=== PATIENT | male | born 1980 | race Caucasian/White ===

== ENCOUNTER → 2020-11-01 10:20 | Outpatient (BNVA) | payer MEDICARE, SELFPAY | PROVIDERS: Family Provider Nurse Practitioner Family; PCP Family Medicine; Visit Provider Internal Medicine | DX: M25.50 Pain in unspecified joint (principal); Z79.899 Other long term (current) drug therapy; Z11.59 Encounter for screening for other viral diseases; M45.9 Ankylosing spondylitis of unspecified sites in spine; G62.9 Polyneuropathy, unspecified; M25.552 Pain in left hip; R53.83 Other fatigue; L40.9 Psoriasis, unspecified; D86.9 Sarcoidosis, unspecified; Z51.81 Encounter for therapeutic drug level monitoring; M54.9 Dorsalgia, unspecified | CPT/HCPCS: 36415; 72202; 73120; 80053; 82306; 82310; 82533; 82550; 82607; 82728; 82784; 83516; 83540; 83735; 83970; 84100; 84403; 84443; 85025; 85651; 86140; 86160; 86162; 86235; 86255; 86376; 86431; 86617; 86704; 86803; 86812; 87340; 99204 ==

== ENCOUNTER 2020-11-01 12:01 | Outpatient (CLI) | payer MEDICARE, SELFPAY ==
--- NOTE | 2020-11-01 12:10 | XR_ITS ---
WS: [id number] Exam: XR hand LT 2V [id number] Date/Time of Exam: 11/01/2020 1:08 PM Reason For Exam: M25.50 - Pain in unspecified joint Findings: No fractures, soft tissue swelling, or unusual calcifications are noted. The hand shows normal bony alignment. There is no irregularity of the bony architecture. XR/XR hand LT 2V [id number] IMPRESSION: Normal left hand.
--- NOTE | 2020-11-01 12:10 | XR_ITS ---
WS: [id number] Exam: XR hand RT 2V [id number] Date/Time of Exam: 11/01/2020 1:08 PM Reason For Exam: M25.50 - Pain in unspecified joint Findings: No fractures, soft tissue swelling, or unusual calcifications are noted. The hand shows normal bony alignment. There is no irregularity of the bony architecture. Old mild fracture deformity of the fif th metacarpal. XR/XR hand RT 2V [id number] IMPRESSION: Normal right hand.
--- NOTE | 2020-11-01 12:10 | XR_ITS ---
WS: [id number] Exam: XR sacroiliac jts m 3V [id number] Date/Time of Exam: 11/01/2020 1:08 PM Reason For Exam: L40.9 - Psoriasis, unspecified No fracture or dislocation. Mild degenerative change of both SI joints. The SI joints are open. Old l eft pelvic fractures are noted with plate and screw fixation. XR/XR sacroiliac jts m 3V [id number] IMPRESSION: 1. 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 No other signif icant finding.
[2020-11-01 14:09] LABS: Basophils % 0.1 %; Eosinophils % 0.1 %; Hematocrit 47.1 % (42.0-52.0); Hemoglobin 15.5 g/dL (11.7-16.6); Lymphocytes # 1.5 10^3/uL (0.8-4.8); Lymphocytes % 8.6 %; Mean Corpuscular HGB Conc 32.9 g/dL (30.0-36.0); Mean Corpuscular Hemoglobin 28.6 pg (28.0-34.0); Mean Corpuscular Volume 86.9 fL (80-94); Mean Platelet Volume 11.1 fL (7.4-10.4); Monocytes % 5.9 %; Neutrophils # 14.74 10^3/uL (1.8-7.7); Nucleated Red Blood Cells % 0 %; Platelet Count 288 10^3/cmm (130-400); Red Blood Count 5.42 10^6/uL (4.1-5.3); Red Cell Distribution Width 13.8 % (12.1-15.1); White Blood Count 17.3 10^3/uL (4.0-10.0)
[2020-11-01 14:31] LABS: Calcium 9.6 mg/dL (8.5-10.5); Parathyroid Hormone 71.2 pg/mL (15-65)
[2020-11-01 14:34] LABS: Rheumatoid Factor < 10.0 IU/mL (0-14)
[2020-11-01 14:38] LABS: 25 Hydroxy Vitamin D 27 ng/mL (30-100); Alanine Aminotransferase 34 U/L (0-41); Albumin Level 4.6 g/dL (3.5-5.2); Alkaline Phosphatase 71 IU/L (40-130); Anion Gap 11.6 (5-19); Aspartate Amino Transferase 22 U/L (0-40); Blood Urea Nitrogen 19 mg/dL (6-20); C Reactive Protein 0.3 mg/L (0.0-4.9); Calcium 9.2 mg/dL (8.5-10.5); Carbon Dioxide 29 mmol/L (22-29); Chloride 100 mmol/L (98-107); Creatine Phosphokinase 146 U/L (39-308); Ferritin 89 ng/mL (30-400); Globulin 2.6 g/dL (1.3-4.6); Glomerular Filtration Rate 124.3 mL/min (90-130); Glucose 99 mg/dL (65-115); Iron 111 ug/dL (59-158); Osmolality Calculated 286 mOsm/kg (285-295); Phosphorus 3.3 mg/dL (2.5-4.5); Potassium 3.6 mmol/L (3.5-5.1); Sodium 137 mmol/L (136-145); Total Bilirubin 0.5 mg/dL (0.15-1.2); Total Protein 7.2 g/dL (6.6-8.7); Vitamin B12 490 pg/mL (232-1245)
[2020-11-01 15:00] LABS: Hepatitis B Core AB, Total Non-Reactive (Nonreactive); Hepatitis B Surface Antigen Non-Reactive (Nonreactive); Hepatitis C Virus Antibody Non-Reactive (Nonreactive)
[2020-11-01 15:11] LABS: Testosterone Total 192.8 ng/dL (249-836)
[2020-11-01 15:36] LABS: Erythrocyte Sedimentation Rate 7 mm/hr (0-10)
[2020-11-02 12:07] LABS: COMPLEMENT COMPONENT C3C 134 mg/dL (82-185); COMPLEMENT COMPONENT C4C 19 mg/dL (15-53); Lymes IGG WB <0.90 index
[2020-11-02 14:13] LABS: ANA SCREEN, IFA NEGATIVE (NEGATIVE); CENTROMERE B ANTIBODY <1.0 NEG AI (<1.0 NEG); COMPLEMENT, TOTAL (CH50) >60 U/mL (31-60); JO-1 ANTIBODY <1.0 NEG AI (<1.0 NEG); RNP ANTIBODY <1.0 NEG AI (<1.0 NEG); SCL-70 ANTIBODY <1.0 NEG AI (<1.0 NEG); SJOGREN'S ANTIBODY (SS-A) <1.0 NEG AI (<1.0 NEG); SM ANTIBODY <1.0 NEG AI (<1.0 NEG); SS-B <1.0 NEG AI (<1.0 NEG)
[2020-11-02 16:18] LABS: Cyclic Citrullinated Peptide <16 UNITS; THYROID PEROXIDASE ANTIBODIES <1 IU/mL (<9)
[2020-11-06 00:07] LABS: Immunoglobulin A 201 mg/dL (47-310)
[2020-11-06 14:07] LABS: Tissue Transglutaminase IgA Ab <1 U/mL; Tissue transglutaminase Ab.IgG 3 U/mL
[2020-11-07 22:08] LABS: HLA-B27 NEGATIVE (NEGATIVE)
[2020-11-08 14:08] LABS: Gliadin Ab.IgA 4 U (<20); Gliadin Ab.IgG 2 U (<20)
[2020-11-08 22:53] LABS: DNA AB (DS) CRITHIDIA,IFA NEGATIVE (NEGATIVE)
== END 2020-11-01 12:02 | disposition home or self-care (01) ==
PROVIDERS: PCP Family Medicine; Visit Provider Internal Medicine
DX: M25.50 Pain in unspecified joint (principal); L40.9 Psoriasis, unspecified; D86.9 Sarcoidosis, unspecified; Z51.81 Encounter for therapeutic drug level monitoring; M45.9 Ankylosing spondylitis of unspecified sites in spine; Z11.59 Encounter for screening for other viral diseases
CPT/HCPCS: 36415; 72202; 73120; 80053; 82306; 82310; 82533; 82550; 82607; 82728; 82784; 83516; 83540; 83735; 83970; 84100; 84403; 84443; 85025; 85651; 86140; 86160; 86162; 86235; 86255; 86376; 86431; 86617; 86704; 86803; 86812; 87340

== ENCOUNTER → 2020-12-04 14:10 | Outpatient (BNVA) | payer MEDICARE, SELFPAY | PROVIDERS: PCP Family Medicine; Referring Provider Internal Medicine; Visit Provider Internal Medicine | DX: E27.40 Unspecified adrenocortical insufficiency (principal); E34.9 Endocrine disorder, unspecified; R79.89 Other specified abnormal findings of blood chemistry | CPT/HCPCS: 99204 ==

== ENCOUNTER → 2022-09-14 14:12 | Outpatient (BNVA) | payer MEDICAID, SELFPAY | PROVIDERS: PCP Family Medicine; Visit Provider Emergency Medicine | DX: R68.89 Other general symptoms and signs (principal); J02.9 Acute pharyngitis, unspecified; J98.8 Other specified respiratory disorders; B97.89 Other viral agents as the cause of diseases classified elsewhere | CPT/HCPCS: 87071; 87400; 87426; 87880 ==